=== PATIENT | male | born 1965 | race Caucasian/White ===

== ENCOUNTER 2016-12-18 07:25 | Emergency (ER) | payer OTHER ==
[~2016-12-18] VITALS: Ht 175.3 cm; Wt 81.6 kg
--- NOTE | 2016-12-18 08:56 | ED MVC/FALL/TRAUMA COMPLAINT ---
History of Present Illness General Chief Complaint: Low Back Pain/Injury Stated Complaint: RIGHT SIDE BACK PAIN Source: patient Exam Limitations: no limitations Allergies Coded Allergies: No Known Allergies (12/18/16) Reconcile Medications No Known Home Medications Triage Note: PT TO ED C/O RIGHT SIDED RIB PAIN, FACE PAIN. STATES TRIP AND FALL DOWN >10 STAIRS YESTERDAY. DENIES LOC. PT NOTED WITH ABRASIONS TO FACE FROM FALL. STATES PAIN IS WORSE WITH COUGHING AND DEEP INHALATION. Triage Nurses Notes Reviewed? yes HPI: This is a 51-year-old male with no significant past medical history comes in for chief complaint of right-sided rib pain status post fall. He stated that his dog tripped him and he took a fall down his staircase at home. They stated that he fell face first but hit his right flank on the railing. He denied any loss of consciousness, headache, change in vision, decreased mobility in neck upper or lower extremities. He does endorse some abrasions to his face, and he does endorse 7-1/2 out of 10 stabbing pain to his right flank upon any movement. The pain is worsened with deep inhalation, or cough. (MOSHE MCKINNON,GERMAINE) Vital Signs & Intake/Output Vital Signs & Intake/Output Vital Signs Date Time Temp Pulse Resp B/P Pulse O2 O2 Flow FiO2 Ox Delivery Rate 12/18 1305 68 18 122/62 99 Room Air 12/18 1152 97.2 67 16 120/57 97 Room Air 12/18 1021 73 16 125/60 95 Room Air 12/18 0754 98 Room Air 12/18 0737 97.3 80 20 126/69 98 Room Air Past History Travel History Traveled to [place] past 21 day No Medical History Any Pertinent Medical History? none Surgical History Surgical History: non-contributory Psychosocial History What is your primary language Romanian Tobacco Use: Quit >30 days ago ETOH Use: denies use Illicit Drug Use: denies illicit drug use Family History Hx Contributory? No (MOSHE MCKINNON,GERMAINE) Review of Systems Review of Systems Constitutional: Denies: chills, diaphoresis, fever, malaise, weakness. Eyes: Denies: blurred vision, decreased acuity, inflammation, pain, tunnel vision, vision change. Ears, Nose, Throat, Mouth: Reports: no symptoms. Respiratory: Denies: cough, hemoptysis, orthopnea, short of breath. Cardiovascular: Denies: chest pain, orthopena, palpitations, syncope. Gastrointestinal/Abdominal: Denies: abdominal pain, diarrhea, nausea, vomiting. Genitourinary: Denies: discharge, dysuria, frequency, hematuria, hesitation. Musculoskeletal: Reports: back pain, joint pain, muscle pain, muscle stiffness. Denies: gout, neck pain. Skin: Denies: erythema, lesions. (GERMAINE MESA MD) Physical Exam Physical Exam General Appearance: well developed/nourished, no apparent distress, alert, awake , comfortable Head: evidence of injury, raccoon eyes, several abrasions on face and forehead Eyes: Bilateral: normal appearance, PERRL, EOMI, normal inspection. Ears, Nose, Throat, Mouth: hearing grossly normal, moist mucous membrane Neck: normal inspection, supple, full range of motion, normal alignment Respiratory: normal breath sounds, chest non-tender, no respiratory distress, quiet respiration, lungs clear Cardiovascular: regular rate/rhythm Gastrointestinal: soft, non-tender Back: normal inspection, no vertebral tenderness, upon visual inspection, there is no clear evidence of abrasion, or bruising. However closer inspection there is a slight blue discoloration on the right flank. Patient does have some swelling and firmness to palpation to the right flank. No open injury or wound. He does have some CVA tenderness on the right side. No vertebral body point tenderness. SHEENT has normal flexion, extension, however he does have significant tenderness when moving the right flank. Extremities: pelvis stable Core Measures ACS in differential dx? No Severe Sepsis Present: No Septic Shock Present: No (GERMAINE MESA MD) Progress Differential Diagnosis: C/T/L spine injury Diagnostic Imaging: Viewed by Me: CT Scan. Radiology Impression: fracture (GERMAINE MESA MD) Plan of Care: Orders Procedure Date/time Status Saline Lock 12/18 842 Active URINALYSIS 12/18 842 Complete PROTHROMBIN TIME 12/18 842 Complete LIPASE 12/18 842 Complete COMPREHENSIVE METABOLIC PANEL 12/18 842 Complete CBC WITHOUT DIFFERENTIAL 12/18 842 Complete Laboratory Tests 12/18/16 1109: Urine Color YEL, Urine Clarity CLEAR, Urine pH 6.0, Ur Specific Waterflow 1.025, Urine Protein NEG, Urine Ketones NEG, Urine Nitrite NEG, Urine Bilirubin NEG, Urine Urobilinogen 0.2, Ur Leukocyte Esterase NEG, Ur Microscopic EXAM NOT REQUIRED, Urine Hemoglobin NEG, Urine Glucose NEG 12/18/16 0904: Anion Gap 10, Estimated GFR > 60, BUN/Creatinine Ratio 22.5, Glucose 115 H, Calcium 9.7, Total Bilirubin 0.6, AST 16 L, ALT 33, Alkaline Phosphatase 80, Total Protein 7.1, Albumin 4.2, Globulin 2.9, Albumin/Globulin Ratio 1.4, Lipase 112, PT 11.8, INR 1.13, CBC w Diff NO MAN DIFF REQ, RBC 4.46 L, MCV 89.9, MCH 30.9, RDW 12.3, MPV 7.8, Gran % 73.1, Lymphocytes % 19.7 L, Monocytes % 6.6, Eosinophils % 0.3, Basophils % 0.3, Absolute Granulocytes 5.7, Absolute Lymphocytes 1.5, Absolute Monocytes 0.5, Absolute Eosinophils 0, Absolute Basophils 0, PUBS MCHC 34.4 At this time, given patient's obvious facial injuries including raccoon eyes and abrasions, we will obtain CT head and neck. Given flank pain and CVA tenderness we will obtain CT abdomen and pelvis to rule out any renal injury. In addition, we will do UA and some basic labs. CAT scan shows at least 3-4 rib fractures. Pending the remaining imaging including the head and neck CT. Patient will either likely have to be transferred to [place] for further monitoring of trauma or discharged home. I have spoken with , trauma surgeon at [facility], who has agreed to be the accepting physician for the transfer. Patient is in agreement to transfer. We are pending room assignment at this time. (MOSHE MCKINNON,GERMAINE) Departure Departure Condition: Stable Referrals: UNKNOWN (PCP/Family) Additional Instructions: You are being transferred to [facility] for further monitoring of your clinical status given your multiple rib fractures. Departure Forms: Customer Survey General Discharge Information Prescriptions: Current Visit Scripts No Known Home Medications (GERMAINE MESA MD) Departure Disposition: OTHER [facility] (ACUTE) Clinical Impression Primary Impression: Ribs, multiple fractures Secondary Impressions: Blunt chest trauma, Facial contusion, Fall down stairs Resident Co-Sign Statement Statement: ED Attending supervision documentation- [x] I saw and evaluated the patient. I have also reviewed all the pertinent lab results and diagnostic results. I agree with the findings and the plan of care as documented in the Resident's documentation. [] I have reviewed the ED Record and agree with the Resident's documentation. [] Additions or exceptions (if any) to the Resident's note and plan are summarized below: [] (MARIELENA MCKINNON,CARLOS Hernandez)
--- NOTE | 2016-12-18 09:08 | RADIOLOGY REPORT ---
EXAMINATION: XR RIBS, RIGHT CLINICAL INFORMATION: Rib fracture. Right flank pain and tenderness status post fall COMPARISON: None TECHNIQUE: 3 views of the right ribs were obtained. FINDINGS: Lungs are clear. No consolidation, pneumothorax, or pleural effusion. The cardiomediastinal silhouette and pulmonary vasculature are normal. Right RIBS: There is a minimally displaced fracture of the right 11th rib at the junction of the middle and distal third portion. The remaining ribs and overlying soft tissues are unremarkable IMPRESSION: Minimally displaced fracture of the right 11th rib
[2016-12-18 09:11] LABS: ABSOLUTE BASOPHIL COUNT 0 /CUMM (0.0-0.2); ABSOLUTE EOSINOPHIL COUNT 0 /CUMM (0.0-0.7); ABSOLUTE GRANULOCYTE CT 5.7 /CUMM (1.4-6.5); ABSOLUTE LYMPH COUNT 1.5 /CUMM (1.2-3.4); ABSOLUTE MONOCYTE COUNT 0.5 /CUMM (0.10-0.60); BASOPHIL % 0.3 % (0.0-2.0); EOSINOPHIL % 0.3 % (0-5); GRANULOCYTE % 73.1 % (42.2-75.2); HEMATOCRIT 40.1 % (42-52); MEAN CORPUSCULAR HGB 30.9 PG (27.0-31.0); MEAN CORPUSCULAR HGB CONC 34.4 G/DL (33.0-37.0); MEAN CORPUSCULAR VOLUME 89.9 FL (80.0-94.0); MEAN PLATELET VOLUME 7.8 FL (7.4-10.4); PLATELET COUNT 205 /CUMM (130-400); RBC DISTRIBUTION WIDTH 12.3 % (11.5-14.5); RED BLOOD CELL CT 4.46 /CUMM (4.70-6.10); WHITE BLOOD CELL COUNT 7.8 /CUMM (4.8-10.8)
[2016-12-18 09:17] LABS: PT 11.8 SEC (9.4-12.5)
--- NOTE | 2016-12-18 11:21 | CT SCAN REPORT ---
EXAMINATION: CT ABDOMEN AND PELVIS WITH CONTRAST CLINICAL INFORMATION: History of fall down flight of stairs with right flank pain. COMPARISON: 05/17/2010 TECHNIQUE: Multidetector volumetric imaging was performed of the abdomen and pelvis before and after the IV administration of 95 mL of Optiray 320 intravenous contrast. Sagittal and coronal reformatted images were obtained on the technologist's workstation. DLP: 394 mGy-cm FINDINGS: LUNG BASES: Minimal atelectasis in dependent aspect of each lower lobe. LIVER, GALLBLADDER, AND BILIARY TREE: Liver has normal size, contour and attenuation. No evidence of hepatic laceration, mass or intrahepatic ductal dilatation. Gallbladder is physiologically distended and without evidence of radiopaque calculi. PANCREAS: Unremarkable. SPLEEN: Unremarkable. ADRENAL GLANDS: Unremarkable. KIDNEYS AND URETERS: The kidneys are normal in size, shape, and attenuation. No hydronephrosis, hydroureter, or calculi seen. No perinephric stranding. BLADDER: Unremarkable. GASTROINTESTINAL TRACT: Stomach is unremarkable. Loops of bowel are normal in caliber. Appendix is normal. There are colonic diverticula, most numerous in the sigmoid region, without diverticulitis. No ascites or pneumoperitoneum. ABDOMINAL WALL: No abdominal wall hematoma. There is minimal protrusion of fat into the umbilicus. LYMPH NODES: No pathologic sized lymph nodes within the abdomen or pelvis. VASCULAR: Abdominal aorta is normal in caliber and the celiac trunk, SMA, BIRD and renal arteries are widely patent. PELVIC VISCERA: Prostate gland is unremarkable. No pelvic free fluid. OSSEOUS STRUCTURES: The visualized lower thoracic and lumbar vertebra have normal density, height and alignment. No acute vertebral fracture or subluxation. There is no focal paraspinal soft tissue swelling. There is a nondisplaced fracture of the right anterolateral seventh rib and minimally displaced fracture of the right anterolateral eighth rib. An incomplete fracture of the posterior right 10th rib is suspected. There is a moderately displaced fracture of the right posterolateral 11th rib and nondisplaced fracture of the posterior right 12th rib. Incidentally noted is a prominent bridging enthesophyte overlying the right sacroiliac joint. No sacral fracture. The pelvic bones and proximal femurs are intact. 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 IMPRESSION: 1. Multiple acute, right rib fractures. 2. No evidence of hepatic laceration. 3. Colonic diverticulosis without diverticulitis.
--- NOTE | 2016-12-18 11:27 | CT SCAN REPORT ---
EXAMINATION: CT SCAN OF THE HEAD CT SCAN OF THE MAXILLOFACIAL REGION CLINICAL INFORMATION: Fall down flight of stairs. COMPARISON: None. TECHNIQUE: CT scan of the head was performed without contrast with additional coronal reformatted images obtained at the acquisition workstation. CT scan of the maxillofacial bones was performed with additional coronal and sagittal reformatted images obtained. DLP: 1741 mGy-cm for the head, C-spine and face. FINDINGS: CT HEAD: There is no mass, hemorrhage or cerebral edema. The ventricles and basal cisterns are normal. The mastoid air cells are normal. SINUSES: See below. CT MAXILLOFACIAL: There is near complete opacification of the left maxillary sinus with some apparent erosion or extension through the medial wall into the left nasal passage. The sinuses are otherwise clear. I do not see a fracture. IMPRESSION: CT head: Normal. CT maxillofacial region. Near complete opacification of the left maxillary sinus with some extension into the left nasal passage compatible with chronic inflammatory changes.
--- NOTE | 2016-12-18 11:33 | CT SCAN REPORT ---
EXAMINATION: CT CERVICAL SPINE WITHOUT CONTRAST CLINICAL INFORMATION: Fall down stairs with facial ecchymoses. COMPARISON: None TECHNIQUE: CT scan of cervical spine was performed with additional sagittal coronal reformatted images obtained at the acquisition workstation. DLP: As noted previously 1741 mGy-cm for CT head, cervical spine and maxillofacial series. FINDINGS: The vertebral bodies are normally aligned. There is no fracture or bone lesion. There is bilateral facet arthrosis present at the C2-C3 and C3-C4 level on the left. There is multilevel degenerative disc changes present at the C4-C5 C5-C6 levels manifested by endplate osteophytes and mild disc space narrowing. Mild arterial calcification noted. Surrounding soft tissues are unremarkable. IMPRESSION: No acute abnormality. Cervical spondylosis.
[2016-12-18 13:05] VITALS: BP 122/62
== END 2016-12-18 13:07 | disposition short-term general hospital (02) ==
LOC: ERH 07:25
PROVIDERS: Emergency Medicine
DX: S22.49XA Multiple fractures of ribs, unspecified side, initial encounter for closed fracture (principal); S29.9XXA Unspecified injury of thorax, initial encounter; S00.83XA Contusion of other part of head, initial encounter; W10.9XXA Fall (on) (from) unspecified stairs and steps, initial encounter; Y93.9 Activity, unspecified; Y92.009 Unspecified place in unspecified non-institutional (private) residence as the place of occurrence of the external cause
CPT/HCPCS: 71100-RT; 74177; 81003; 96374; J0131